=== PATIENT | male | born 1990 | race Caucasian/White ===

== ENCOUNTER 2024-10-22 10:58 | Emergency (ER) | payer SELFPAY ==
[~2024-10-22] VITALS: Ht 167.6 cm; Wt 81.6 kg
[2024-10-22 11:01] VITALS: O2SAT 98
[2024-10-22 11:20] LABS: BASOPHILS % 0.3 % (0.0-2.0); EOSINOPHILS % 0.1 % (0.0-5.0); HEMATOCRIT. 45.7 % (42.0-52.0); HEMOGLOBIN. 15.3 g/dL (14.0-18.0); LYMPHOCYTES % 15.2 % (20.0-50.0); MEAN PLATELET VOLUME 7.8 fl (7.4-10.4); MONOCYTES % 3.6 % (2.0-8.0); NEUTROPHILS % 80.8 % (40.0-76.0); PLATELET 265 x1000/uL (130-400); RED BLOOD CELL COUNT 5.66 mill/uL (4.7-6.1); RED CELL DISTRIBUTION WIDTH 13.4 % (11.6-14.6)
[2024-10-22 11:34] LABS: CREATININE 0.9 mg/dL (0.6-1.3); UREA NITROGEN BLOOD 12 mg/dL (9-23)
[2024-10-22 12:15] LABS: CLARITY URINE CLEAR (CLEAR); COLOR URINE YELLOW (YELLOW); GLUCOSE URINE NEGATIVE (NEGATIVE); KETONES URINE 1+ (NEGATIVE); LEUKOCYTE ESTERASE URINE NEGATIVE (NEGATIVE); NITRITE URINE NEGATIVE (NEGATIVE); OCCULT BLOOD URINE NEGATIVE (NEGATIVE); PH URINE 5.5 (4.5-8.0); PROTEIN URINE NEGATIVE (NEGATIVE); SPECIFIC GRAVITY URINE 1.028 (1.005-1.030); UROBILINOGEN URINE 1.0 E.U./dL (0.2-1.0)
[2024-10-22] MEDS ORDERED: ONDA4TAB50 MT (12:19)
[2024-10-22 12:49] VITALS: BP 124/84; PULSE 86; RESP 14; TEMP 36.9; O2SAT 97
== END 2024-10-22 12:51 | disposition home or self-care (01) ==
LOC: ER 10:58
DX: R11.2 Nausea with vomiting, unspecified (principal)
CPT/HCPCS: 36415; 80048; 81003; 85025; 99283